=== PATIENT | female | born 1955 | race Caucasian/White ===

== ENCOUNTER → 2016-11-06 | Outpatient (CLI) | payer BC ==
--- NOTE | 2016-11-06 12:59 | BD ---
EXAMINATION TYPE: MG DEXA axial skeleton. DATE OF EXAM: 11/06/2016 10:57 AM COMPARISON: NONE CLINICAL HISTORY: M85.80 OSTEOPENIA Height: 65 Weight: 175 FRAX RISK QUESTIONS: Alcohol (3 or more units per day): NO Family History (Parent hip fracture): YES, BUT NO FX Glucocorticoids (More than 3mos): NO (Ex: prednisone, prednisolone, methylprednisolone, dexamethasone, and hydrocortisone). History of Fracture in Adulthood: NO Secondary Osteoporosis: NO 1. Type 1 Diabetes: NO 2. Hyperthyroidism: NO 3. Menopause before 45: NO 4. Malnutrition: NO 5. Chronic liver disease: NO Rheumatoid Arthritis: NO Current Tobacco Use: NONE NOW RISK FACTORS HISTORY OF: History of Wrist Fracture: YES LT WRIST When: CHILDHOOD Family History of Osteoporosis: YES, HER MOTHER, NO BROKEN HIP Smoke tobacco: QUIT AT AGE 52 Drink Alcohol: RARE Active: SEMI Diet low in dairy products/other sources of calcium: NO Postmenopausal woman: 52 Adrenal Insufficiency: NO MEDICATIONS: Additional Medications: VIT D, LEXAPRO, Additional History: NONE TO NOTE EXAM MEASUREMENTS: Bone mineral densitometry was performed using the [employer] System. Bone mineral density as measured about the Lumbar spine is: ----- L1-L4(G/cm2): 1.322 T Score Values are as follows: ----- L1: 0.0 ----- L2: 0.2 ----- L3: 1.6 ----- L4: 2.4 ----- L1-L4: 1.2 Bone mineral density THIS IS THE FIRST BONE DENSITY FOR HER AT [facility] Bone mineral density about the R hip (g/cm2): 1.160 Bone mineral density about the L hip (g/cm2): 1.091 T Score values are as follows: -----R Neck: 0.0 -----L Neck: 0.9 -----R Intertrochanter: -0.1 -----L Intertrochanter: -0.6 Bone mineral density FIRST BONE DENSITY TEST FOR HER AT [facility] FRAX %'S: 5.9% FOR A MAJOR OSTEOPOROTIC FX AND 0.1% FOR A HIP FX....PROBABILITY OF FX IN 10 YRS TIME IMPRESSION: Normal (Values between +1 and -1 indicate normal bone mass FOR BOTH SCANS, BOTH HIPS AND LUMBAR SP INE) NOTE: T-SCORE=SD OF THE YOUNG ADULT MEAN.
--- NOTE | 2016-11-15 09:48 | MM ---
Reason for exam: screening (asymptomatic). Last mammogram was performed 1 year and 3 months ago. History: Patient is postmenopausal. Family history of breast cancer in paternal aunt. Physical Findings: A clinical breast exam by your physician is recommended on an annual basis and results should be correlated with mammographic findings. MG 3D Screening Mammo W/Cad Bilateral CC and MLO view(s) were taken. Prior study comparison: July 22, 2015, mammogram, performed at [place]. June 01, 2014, mammogram, performed at [place]. The breast tissue is heterogeneously dense. This may lower the sensitivity of mammography. Benign calcifications. There is no discrete abnormality. No significant changes when compared with prior studies. ASSESSMENT: Benign, BI-RAD 2 RECOMMENDATION: Routine screening mammogram of both breasts in 1 year.
== END | disposition home or self-care (01) ==
LOC: RADMAMWWP 10:07
PROVIDERS: ATTEND Family Medicine
DX: Z12.31 Encounter for screening mammogram for malignant neoplasm of breast (principal); M85.80 Other specified disorders of bone density and structure, unspecified site
CPT/HCPCS: 77080; 77063; G0202

== ENCOUNTER 2018-09-09 16:51 | Emergency (ER) | payer BC ==
[2018-09-09 17:14] VITALS: BP 105/64; PULSE 60; RESP 20; TEMP 98.2
--- NOTE | 2018-09-09 18:22 | XR ---
EXAMINATION TYPE: XR shoulder complete LT DATE OF EXAM: 09/09/2018 COMPARISON: NONE HISTORY: 63 year-old female left shoulder pain TECHNIQUE: 3 views FINDINGS: Mild degenerative joint space narrowing and capsular distention at the AC joint. Subacromial space is preserved. No acute fracture, subluxation, or dislocation. IMPRESSION: Mild AC joint OA. No acute osseous abnormality seen.
[2018-09-09] MEDS ORDERED: KETOROLAC 60 MG/2 ML VIAL IM STA (19:02)
--- NOTE | 2018-09-09 19:29 | ED ---
General Adult HPI - General Chief complaint: Extremity Problem,Nontraumatic Stated complaint: Left shoulder pain Source: patient, RN notes reviewed, old records reviewed Mode of arrival: ambulatory Limitations: no limitations - History of Present Illness Initial comments: 63-year-old female patient with no pertinent past medical history presents to ED after sustaining a left shoulder injury. Patient states that she was standing in her kitchen when she reached overhead cabinet and she felt pain in her left acromioclavicular joint. She states that this pain has persisted throughout the day and the pain is worsened by internal/external rotation movements of her arm overhead movements of her arm and painful to palpate. Patient denies any other complaints. Patient denies chest pain, shortness breath, abdominal pain, nausea and diarrhea, fever or chills. Systemic: Pt denies fatigue, myalgia, fever/chills, rash. Pt denies weakness, night sweats, weight loss. Neuro: Pt denies headache, visual disturbances, syncope or pre-syncope. HEENT: Pt denies ocular discharge or irritation, otalgia, rhinorrhea, pharyngitis or notable lymphadenopathy. Cardiopulmonary: Pt denies chest pain, SOB, heart palpitations, dyspnea on exertion. Abdominal/GI: Pt denies abdominal pain, n/v/d. : Pt denies dysuria, burning w/ urination, frequency/urgency. Denies new onset urinary or bowel incontinence. MSK: Pt denies loss of strength in extremities. Neuro: Pt denies new onset weakness, paresthesias. - Related Data Previous Rx's Medication Instructions Recorded Ibuprofen [Motrin] 600 mg PO Q6HR PRN #40 day 09/09/18 Allergies Allergy/AdvReac Type Severity Reaction Status Date / Time No Known Allergies Allergy Verified 09/09/18 17:14 Review of Systems ROS Statement: Those systems with pertinent positive or pertinent negative responses have been documented in the HPI. ROS Other: All systems not noted in ROS Statement are negative. Past Medical History Past Medical History: No Reported History History of Any Multi-Drug Resistant Organisms: None Reported Past Surgical History: Appendectomy, Section Past Psychological History: Depression Smoking Status: Former smoker Past Alcohol Use History: None Reported Past Drug Use History: None Reported General Exam - General Exam Comments Initial Comments: Constitutional: NAD, AOX3, Pt has pleasant affect. HEENT: NC/AT, trachea midline, neck supple, no lymphadenopathy. Posterior pharynx non erythematous, without exudates. External ears appear normal, without discharge. Mucous membranes moist. Eyes PERRLA, EOM intact. There is no scleral icterus. No pallor noted. Cardiopulmonary: RRR, no murmurs, rubs or gallops, no JVD noted. Lungs CTAB in anterior and posterior saavedra. No peripheral edema. Abdominal exam: Abdomen soft and non-distended. Abdomen non-tender to palpation in all 4 quadrants. Bowel sounds active in LLQ. No hepatosplenomegaly. No ecchymosis Neuro: CN II-XII grossly intact. No nuchal rigidity. MSK: Left AC joint mildly tender to palpation. Painful arc positive left sided. Empty can test positive left sided. Pain with internal and external rotation. 5 out of 5 biceps and triceps strength. No posterior calf tenderness bilaterally, homans sign negative bilaterally. Posterior tibialis and radial pulse +2 bilaterally. Sensation intact in upper and lower extremities. Full active ROM in upper and lower extremities, 5/5 strength. Limitations: no limitations Course Vital Signs 09/09/18 17:11 Temperature 98.2 F Pulse Rate 60 Respiratory 20 Rate Blood Pressure 105/64 O2 Sat by Pulse 97 Oximetry Medical Decision Making - Medical Decision Making 63-year-old female patient with no pertinent past medical history presents to ED after sustaining a left shoulder injury. Patient states that she was standing in her kitchen when she reached overhead cabinet and she felt pain in her left acromioclavicular joint. She states that this pain has persisted throughout the day and the pain is worsened by internal/external rotation movements of her arm overhead movements of her arm and painful to palpate. Patient denies any other complaints. Physical exam displayed Left AC joint mildly tender to palpation. Painful arc positive left sided. Empty can test positive left sided. Pain with internal and external rotation. 5 out of 5 biceps and triceps strength. Plain film of left shoulder joint displayed mild before meals joint posterior arthritis. No acute osseous abnormality seen. Physical exam is suspicious for left rotator cuff injury. Patient given Toradol in ED. discharged with ibuprofen. Pt to f/u with PCP in 1-2 days. Pt given orthopetic referral. Pt to return to ED if new s/sx develop or if sx worsen in anyway. Case discussed with Dr. Burrows Disposition Clinical Impression: Rotator cuff injury Disposition: HOME SELF-CARE Condition: Good Instructions: Rotator Cuff Injury (ED) Additional Instructions: Patient to adhere to previously discussed treatment plan and will take medication(s) as directed. Patient to follow up with PCP in 1-2 days. Patient to return to ED if symptoms do not improve. Prescriptions: Ibuprofen [Motrin] 600 mg PO Q6HR PRN #40 day PRN Reason: Pain Is patient prescribed a controlled substance at d/c from ED?: No Referrals: Ryan Bang DO [Primary Care Provider] - 1-2 days Cuong Suárez MD [STAFF PHYSICIAN] - 1-2 days Time of Disposition: 19:29
== END 2018-09-09 19:56 | disposition home or self-care (01) ==
LOC: EC 16:51
DX: S46.002A Unspecified injury of muscle(s) and tendon(s) of the rotator cuff of left shoulder, initial encounter (principal); Z87.891 Personal history of nicotine dependence; X50.9XXA Other and unspecified overexertion or strenuous movements or postures, initial encounter; Y92.000 Kitchen of unspecified non-institutional (private) residence as the place of occurrence of the external cause
CPT/HCPCS: 73030; 99284; 96372; J1885

== ENCOUNTER → 2018-09-17 | Outpatient (CLI) | payer BC ==
--- NOTE | 2018-09-21 10:31 | MM ---
Reason for exam: screening (asymptomatic). Last mammogram was performed 1 year and 10 months ago. History: Patient is postmenopausal. Family history of breast cancer in aunt. MG 3D Screening Mammo W/Cad Bilateral CC and MLO view(s) were taken. Prior study comparison: November 06, 2016, bilateral MG 3d screening mammo w/cad. July 22, 2015, mammogram, performed at [place]. There are scattered fibroglandular densities. No suspicious abnormality. No significant changes when compared with prior studies. ASSESSMENT: Negative, BI-RAD 1 RECOMMENDATION: Routine screening mammogram of both breasts in 1 year.
== END | disposition home or self-care (01) ==
LOC: RADMAMWWP 15:09
PROVIDERS: ATTEND Family Medicine
DX: Z12.31 Encounter for screening mammogram for malignant neoplasm of breast (principal)
CPT/HCPCS: 77063; 77067

== ENCOUNTER → 2020-07-09 | Outpatient (CLI) | payer BC | END | disposition home or self-care (01) | LOC: LABWHC1 12:28 | PROVIDERS: ATTEND Physician Assistant Medical | DX: J02.9 Acute pharyngitis, unspecified (principal); R05 Cough; Z20.828 Contact with and (suspected) exposure to other viral communicable diseases | CPT/HCPCS: U0003; C9803 ==

== ENCOUNTER → 2020-10-12 | Outpatient (CLI) | payer BC ==
--- NOTE | 2020-10-12 14:05 | US ---
EXAMINATION TYPE: US thyroid st tissue head/neck DATE OF EXAM: 10/12/2020 COMPARISON: NONE CLINICAL HISTORY: E07.9 Disorder of the thyroid. thyroid nodules GLAND SIZE: Right Lobe: 4.4 x 1.2 x 1.6 cm Overall Parenchyma: homogenous Left Lobe: 3.8 x 1.1 x 1.2 cm Overall Parenchyma: homogeneous Isthmus Thickness: 0.3 cm NODULES RIGHT: # of nodules measured on right: 2 1. 0.9 X 0.6 x 0.7 cm solid, hypoechoic nodule, which is wider than tall, with smooth margins, with out echogenic foci. Prior size: no prior 2. 0.4 X 0.4 x 0.3 cm solid, hypoechoic nodule, which is wider than tall, with calcified margins Prior size: no prior LEFT: # of nodules measured on left: 1 1. 0.5 X 0.4 x 0.5 cm solid, hypoechoic nodule, which is wider than tall, with smooth margins, with echogenic foci. Prior size: no prior ISTHMUS: # of nodules measured in the isthmus: 0 Bilateral neck scanned, no evidence of lymphadenopathy. IMPRESSION: Nonspecific thyroid nodularity.
== END | disposition home or self-care (01) ==
LOC: RADUSWWP 12:12
PROVIDERS: ATTEND Family Medicine
DX: E07.9 Disorder of thyroid, unspecified (principal)
CPT/HCPCS: 76536

== ENCOUNTER → 2020-10-12 | Outpatient (CLI) | payer BC ==
[2020-10-12 13:36] VITALS: BP 136/67; PULSE 79; RESP 18; TEMP 98.1
--- NOTE | 2020-10-12 14:18 | P.HPOB ---
History of Present Illness H&P Date: 10/12/20 Chief Complaint: The patient is here for her routine gynecologic exam and ma mmogram. This is a 65-year-old with an LMP of 2006. The patient is here to establish with this office. It has been about 5 years since her last pelvic exam. The patient is without complaints and denies any postmenopausal bleeding. Review of Systems The patient's weight has been stable over the last year. She denies respiratory, cardiac, or G.I. problems. 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 Heartburn. PAST [employer] HISTORY: She has no history of STDs. History of Any Multi-Drug Resistant Organisms: None Reported Past Surgical History: Appendectomy, Section, Tubal Ligation Additional Past Surgical History / Comment(s): Colonoscopy 2016(next after 10yr). Past Psychological History: Depression Smoking Status: Former smoker Past Alcohol Use History: Rare (3 per year) Additional Past Alcohol Use History / Comment(s): Quit smoking in 2005. Past Drug Use History: None Reported Additional History: She has been twice. She is not seeing anybody at this time. 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 Father Family Medical History: Diabetes Mellitus, Hypertension Additional Family Medical History / Comment(s): Paternal aunt had breast cancer. Brother(s) Family Medical History: Myocardial Infarction ([place]) Additional Family Medical History / Comment(s): in his 40s of an [place]. Medications and Allergies Home Medications Medication Instructions Recorded Confirmed Type Ibuprofen [Motrin] 600 mg PO Q6HR PRN #40 day 09/09/18 10/12/20 Rx Aspirin 81 mg PO DAILY 10/12/20 10/12/20 History Calcium Carbonate/Vitamin D3 1 each PO DAILY 10/12/20 10/12/20 History [Calcium 500-Vit D3 5 Mcg (200 Iu)] Cholecalciferol (Vitamin D3) 125 mcg PO DAILY 10/12/20 10/12/20 History [Vitamin D3 (5000 Iu)] Escitalopram [Lexapro] 10 mg PO DAILY 10/12/20 10/12/20 History Magnesium 250 mg PO DAILY 10/12/20 10/12/20 History Multivitamin [Multivitamins Adult 1 each PO DAILY 10/12/20 10/12/20 History Gummies] Omeprazole 20 mg PO DAILY 10/12/20 10/12/20 History Rosuvastatin [Crestor] 20 mg PO DAILY 10/12/20 10/12/20 History Ubidecarenone [Co Q-10] 100 mg PO DAILY 10/12/20 10/12/20 History Allergies Allergy/AdvReac Type Severity Reaction Status Date / Time No Known Allergies Allergy Verified 09/09/18 17:14 Exam Vital Signs Temp Pulse Resp BP Pulse Ox 10/12/20 13:31 98.1 F 79 18 136/67 98 Intake and Output 10/11/20 10/12/20 10/12/20 22:59 06:59 14:59 Other: Weight 82.554 kg Height 5 feet 4-1/2 inches, weight 182 pounds, BMI 30.8. This is a well-developed well-nourished white female who is alert and oriented times 3 in no acute distress. HEENT: Within normal limits. NECK: Supple without mass or thyromegaly. CHEST AND LUNGS: Clear to auscultation. HEART: Regular rate and rhythm. BREASTS: Are without mass or discharge. AXILLARY EXAM: Negative for adenopathy. BACK: Negative for CVA tenderness. ABDOMEN: Soft, nontender, without palpable masses. PELVIC EXAM: Normal external genitalia with moderate atrophy. Cervix and vagina appear normal with mild to moderate atrophy. There is no unusual discharge. There is no evidence of prolapse. The uterus is midposition, nongravid size and nontender. There are no palpable adnexal masses or tenderness. RECTAL EXAM: Rectovaginal exam is negative for mass or tenderness and is negative for occult blood. EXTREMITIES: Nontender. Prior studies: Bone density test done on 11/06/2016 was normal. IMPRESSION: 1. 65-year-old menopausal female with normal gynecologic exam. PLAN: 1. Pap smear cotest was performed. 2. Self breast awareness was discussed with the patient. 3. Screening mammogram will be done today. 4. Osteoporosis prevention was discussed. I have stressed the importance of adequate calcium, vitamin D and regular exercise. Recommended amounts of calcium and vitamin D were also discussed. We will plan on repeating bone density testing in 1 year at her next well woman exam. 5. She was advised to return in one year for her annual well woman exam.
--- NOTE | 2020-10-15 13:12 | MM ---
Reason for exam: screening (asymptomatic). Last mammogram was performed 2 years and 1 month ago. History: Patient is postmenopausal. Family history of breast cancer in aunt. Took hormonal contraceptives for 5 years. Physical Findings: A clinical breast exam by your physician is recommended on an annual basis and results should be correlated with mammographic findings. MG 3D Screening Mammo W/Cad Bilateral CC and MLO view(s) were taken. Prior study comparison: September 17, 2018, bilateral MG 3d screening mammo w/cad. November 06, 2016, bilateral MG 3d screening mammo w/cad. No significant changes when compared with prior studies. ASSESSMENT: Benign, BI-RAD 2 RECOMMENDATION: Routine screening mammogram of both breasts in 1 year.
== END | disposition home or self-care (01) ==
LOC: WWCWWP 12:14
PROVIDERS: ATTEND Obstetrics & Gynecology
DX: Z12.31 Encounter for screening mammogram for malignant neoplasm of breast (principal)
CPT/HCPCS: 77063; 77067

== ENCOUNTER 2021-11-13 16:35 | Emergency (ER) | payer BC ==
[2021-11-13 16:40] VITALS: RESP 20; TEMP 98.6
[2021-11-13] MEDS ORDERED: diphenhydrAMINE 50 MG/ML 1 ML VIAL IVP STA (16:56)
[2021-11-13] MEDS ORDERED: ONDANSETRON 4 MG/2 ML VIAL IVP STA (16:56)
[2021-11-13] MEDS ORDERED: SODIUM CHLORIDE 0.9% 1,000 ML IV STA (16:56)
--- NOTE | 2021-11-13 17:06 | ED ---
General Adult HPI - General Chief complaint: Headache Stated complaint: headache, right eye pressure Time Seen by Provider: 11/13/21 16:45 Source: patient, RN notes reviewed Mode of arrival: ambulatory Limitations: no limitations - History of Present Illness Initial comments: 66-year-old female presents to the emergency department for evaluation of head ache. Patient reports she woke up this morning with a sensation of pressure behind her right eye that has gradually worsened right sided headache pain. Patient states her symptoms are accompanied by nausea and sensitivity to light. SHe does have a history of migraine headaches and took Topamax with no improvement. States this headache is worse than her normal migraine. Patient has not sees a neurologist for migraines in the past as they have been minimal. States she also has a history of vertigo though not experienced any dizziness with this episode. Patient denies fever, chills, blurry vision, change in vision, loss of vision, neck pain, chest pain, shortness of breath, difficulty breathing, abdominal pain, vomiting, dysuria, or hematuria. - Related Data Home Medications Medication Instructions Recorded Confirmed Aspirin 81 mg PO DAILY 10/12/20 10/12/20 Calcium Carbonate/Vitamin D3 1 each PO DAILY 10/12/20 10/12/20 [Calcium 500-Vit D3 5 Mcg (200 Iu)] Cholecalciferol (Vitamin D3) 125 mcg PO DAILY 10/12/20 10/12/20 [Vitamin D3 (5000 Iu)] Escitalopram [Lexapro] 10 mg PO DAILY 10/12/20 10/12/20 Magnesium 250 mg PO DAILY 10/12/20 10/12/20 Multivitamin [Multivitamins Adult 1 each PO DAILY 10/12/20 10/12/20 Gummies] Omeprazole 20 mg PO DAILY 10/12/20 10/12/20 Rosuvastatin [Crestor] 20 mg PO DAILY 10/12/20 10/12/20 Ubidecarenone [Co Q-10] 100 mg PO DAILY 10/12/20 10/12/20 Previous Rx's Medication Instructions Recorded Ibuprofen [Motrin] 600 mg PO Q6HR PRN #40 day 09/09/18 Allergies Allergy/AdvReac Type Severity Reaction Status Date / Time No Known Allergies Allergy Verified 11/13/21 16:40 Review of Systems ROS Statement: Those systems with pertinent positive or pertinent negative responses have been documented in the HPI. ROS Other: All systems not noted in ROS Statement are negative. Past Medical History Past Medical History: CVA/TIA, Hyperlipidemia Additional Past Medical History / Comment(s): CVA in 2004 with no residual effects. 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 History of Any Multi-Drug Resistant Organisms: None Reported Past Surgical History: Appendectomy, Section, Tubal Ligation Additional Past Surgical History / Comment(s): Colonoscopy 2017(next after 10yr). Past Psychological History: Depression Smoking Status: Former smoker Past Alcohol Use History: Rare Past Drug Use History: None Reported - Past Family History Mother Family Medical History: Diabetes Mellitus, Hypertension Additional Family Medical History / Comment(s): Osteoporosis. Father Family Medical History: Diabetes Mellitus, Hypertension Additional Family Medical History / Comment(s): Paternal aunt had breast cancer. Brother(s) Family Medical History: Myocardial Infarction ([place]) Additional Family Medical History / Comment(s): in his 40s of an [place]. General Exam Limitations: no limitations General appearance: alert, other (Well-developed, well nourished female in mild distress. Initial temperature 98.6, pulse 61, respirations 20, blood pressure 150/60, pulse ox 99% on room air.) Head exam: Present: atraumatic, normocephalic, normal inspection, other (no tenderness upon palpation of temporal regions bilaterally) Eye exam: Present: normal appearance, PERRL, EOMI. Absent: scleral icterus, conjunctival injection, periorbital swelling, periorbital tenderness Pupils: Present: normal accommodation ENT exam: Present: normal exam, normal oropharynx, mucous membranes moist, TM's normal bilaterally Neck exam: Present: normal inspection, full ROM. Absent: tenderness, meningismus, lymphadenopathy Respiratory exam: Present: normal lung sounds bilaterally. Absent: respiratory distress, wheezes, rales, rhonchi, stridor, chest wall tenderness Cardiovascular Exam: Present: regular rate, normal rhythm, normal heart sounds. Absent: systolic murmur, diastolic murmur, rubs, gallop, clicks GI/Abdominal exam: Present: soft, normal bowel sounds. Absent: distended, tenderness, guarding, rebound, rigid Neurological exam: Present: alert, oriented X3 Expanded Patient oriented to: Present: person, place, time Speech: Present: fluid speech Cranial nerves: EOM's Intact: Normal, Tongue Deviation: Normal, Nystagmus: Normal Cerebellar function: Finger to Nose: Normal Motor strength exam: RUE: 5, LUE: 5, RLE: 5, LLE: 5 Eye Response: (4) open spontaneously Motor Response: (6) obeys commands Verbal Response: (5) oriented [place] Total: 15 Psychiatric exam: Present: normal affect, normal mood Skin exam: Present: warm, dry, intact, normal color. Absent: rash Course Vital Signs 11/13/21 11/13/21 16:38 19:07 Temperature 98.6 F Pulse Rate 61 55 L Respiratory 20 20 Rate Blood Pressure 150/68 126/62 O2 Sat by Pulse 99 96 Oximetry Medical Decision Making - Medical Decision Making 66-year-old female with a past medical history of migraines and vertigo presents to the emergency department for evaluation of headache that she describes as a pressure sensation behind her right eye extending to a throbbing sensation on the right side of her head. Upon exam, patient is well-appearing, nontoxic, and in no acute distress. She is very sensitive to light and reports feeling nauseous. She is neurologically intact with no focal deficit. Patient did take Topamax prior to arrival which typically helps with her headache discomfort. However because this headache is more severe than previous headaches and did not respond to medication, along with her age, CT of the brain was ordered along with lab work. CT was negative. Laboratory studies were unremarkable. Patient was given migraine cocktail and fluids with significant improvement. She is able to tolerate oral intake prior to departure. Red flag symptoms were discussed at length along with return parameters. Patient is instructed to follow up with her PCP this week. Questions answered, she verbalizes understanding and agrees with this plan. This patient's care was discussed with my attending Dr. Dorsey. - Lab Data Result diagrams: 11/13/21 17:02 11/13/21 17:02 Lab Results 11/13/21 11/13/21 Range/Units 17:02 17:02 WBC 7.2 (3.8-10.6) k/uL RBC 4.23 (3.80-5.40) m/uL Hgb 13.3 (11.4-16.0) gm/dL Hct 38.9 (34.0-46.0) % MCV 91.9 (80.0-100.0) fL MCH 31.4 (25.0-35.0) pg MCHC 34.2 (31.0-37.0) g/dL RDW 13.4 (11.5-15.5) % Plt Count 268 (150-450) k/uL MPV 7.4 Neutrophils % 63 % Lymphocytes % 26 % Monocytes % 6 % Eosinophils % 2 % Basophils % 1 % Neutrophils # 4.6 (1.3-7.7) k/uL Lymphocytes # 1.9 (1.0-4.8) k/uL Monocytes # 0.4 (0-1.0) k/uL Eosinophils # 0.2 (0-0.7) k/uL Basophils # 0.1 (0-0.2) k/uL Sodium 139 (137-145) mmol/L Potassium 4.0 (3.5-5.1) mmol/L Chloride 104 (98-107) mmol/L Carbon Dioxide 29 (22-30) mmol/L Anion Gap 6 mmol/L BUN 24 H (7-17) mg/dL Creatinine 0.78 (0.52-1.04) mg/dL Est GFR (CKD-EPI)AfAm >90 (>60 ml/min/1.73 sqM) Est GFR (CKD-EPI)NonAf 81 (>60 ml/min/1.73 sqM) Glucose 102 H (74-99) mg/dL Calcium 8.9 (8.4-10.2) mg/dL Total Bilirubin 0.6 (0.2-1.3) mg/dL AST 26 (14-36) U/L ALT 23 (4-34) U/L Alkaline Phosphatase 59 (38-126) U/L Total Protein 7.2 (6.3-8.2) g/dL Albumin 4.4 (3.5-5.0) g/dL - Radiology Data Radiology results: report reviewed, image reviewed CT of the brain without contrast was obtained. Report was reviewed in its entirety. Impression per Dr. Mulligan as negative computed tomography scan of the brain. Disposition Clinical Impression: Migraine headache Disposition: HOME SELF-CARE Condition: Stable Instructions (If sedation given, give patient instructions): Migraine Headache (ED) Additional Instructions: Continue taking your regular home medications as prescribed. Call your PCP to schedule follow-up appointment tomorrow morning. Return to the emergency department with any new, worsening, or concerning symptoms as we discussed. Is patient prescribed a controlled substance at d/c from ED?: No Referrals: Tommy Salvador DO [Primary Care Provider] - 1-2 days Time of Disposition: 20:00
[2021-11-13 17:13] LABS: Basophils # (A) 0.1 k/uL (0-0.2); Basophils % (A) 1 %; Eosinophils # (A) 0.2 k/uL (0-0.7); Eosinophils % (A) 2 %; HCT 38.9 % (34.0-46.0); HGB 13.3 gm/dL (11.4-16.0); Lymphocytes # (A) 1.9 k/uL (1.0-4.8); Lymphocytes % (A) 26 %; MCH 31.4 pg (25.0-35.0); MCHC 34.2 g/dL (31.0-37.0); MCV 91.9 fL (80.0-100.0); Mean Platelet Volume 7.4; Monocytes # (A) 0.4 k/uL (0-1.0); Monocytes % (A) 6 %; Neutrophils # (A) 4.6 k/uL (1.3-7.7); Neutrophils % (A) 63 %; Platelet Count 268 k/uL (150-450); RBC 4.23 m/uL (3.80-5.40); RDW 13.4 % (11.5-15.5); WBC 7.2 k/uL (3.8-10.6)
[2021-11-13 17:24] LABS: ALT 23 U/L (4-34); AST 26 U/L (14-36); African American GFR (CKD) >90 (>60 ml/min/1.73 sqM); Albumin 4.4 g/dL (3.5-5.0); Alkaline Phosphatase 59 U/L (38-126); Anion Gap 6 mmol/L; Blood Urea Nitrogen 24 mg/dL (7-17); Calcium 8.9 mg/dL (8.4-10.2); Carbon Dioxide 29 mmol/L (22-30); Chloride 104 mmol/L (98-107); Glucose 102 mg/dL (74-99); Non-African American GFR(CKD) 81 (>60 ml/min/1.73 sqM); Sodium 139 mmol/L (137-145); Total Bilirubin 0.6 mg/dL (0.2-1.3); Total Protein 7.2 g/dL (6.3-8.2)
--- NOTE | 2021-11-13 17:38 | CT ---
EXAMINATION TYPE: CT brain wo con DATE OF EXAM: 11/13/2021 COMPARISON: None HISTORY: Headache. CT DLP: 1099.4 mGycm Automated exposure control for dose reduction was used. Ventricles and sulci appear normal. There is no mass effect or midline shift. There is no sign of int racranial hemorrhage. Calvarium is intact. There is normal aeration of the mastoid sinuses. IMPRESSION: Negative CT scan of the brain.
[2021-11-13] MEDS ORDERED: KETOROLAC 15 MG/ML 1 ML VIAL IVP STA (18:54)
[2021-11-13 19:09] VITALS: BP 126/62; PULSE 55
== END 2021-11-13 20:09 | disposition home or self-care (01) ==
LOC: EC 16:35
DX: G43.909 Migraine, unspecified, not intractable, without status migrainosus (principal); I25.2 Old myocardial infarction; Z87.891 Personal history of nicotine dependence
CPT/HCPCS: 36415; 80053; 85025; 70450; 99284; 96374; 96375; 96361; J1200; J2405; J1885

== ENCOUNTER → 2022-06-28 | Outpatient (CLI) | payer BC ==
--- NOTE | 2022-06-28 14:30 | US ---
EXAMINATION TYPE: US thyroid st tissue head/neck DATE OF EXAM: 06/28/2022 COMPARISON: Thyroid ultrasound 12/13/2021 CLINICAL HISTORY: E07.9 Disorder of thyroid, E04.2 goiter. Thyroid nodules GLAND SIZE: Right Lobe: 4.9 x 1.3 x 1.6 cm Overall Parenchyma: homogenous Left Lobe: 3.8 x 1.2 x 1.2 cm Overall Parenchyma: homogeneous Isthmus Thickness: 0.3 cm NODULES RIGHT: # of nodules measured on right: 1 1. 1.0 X 0.6 x 0.8 cm, mid, solid or almost completely solid, hypoechoic nodule, which is wider marsha n tall, with smooth margins, without echogenic foci. TR-4. Prior size: 0.9 x 0.6 x 0.8 cm LEFT: # of nodules measured on left: 1 1. 0.6 x 0.4 x 0.5cm, medial mid, solid or almost completely solid, hypoechoic nodule, which is wider than tall, with smooth margins, without echogenic foci.TR-4. Prior size: 0.6 x 0.4 x 0.4cm ISTHMUS: # of nodules measured in the isthmus: 0 Bilateral neck scanned, no evidence of lymphadenopathy. Multiple small bilateral thyroid nodules with largest described above. IMPRESSION: Stable bilateral thyroid nodules from prior examination. Follow-up ultrasound in one year is recommen ded. 2017 ACR TI-RADS LEVEL: TR-RADS 4 - Moderately Suspicious: Follow if > 1 cm, FNA if > 1.5 cm *Highest TI-RADS level nodule reported
== END | disposition home or self-care (01) ==
LOC: RADUSWWP 13:26
PROVIDERS: ATTEND Family Medicine
DX: E07.9 Disorder of thyroid, unspecified (principal); E04.2 Nontoxic multinodular goiter
CPT/HCPCS: 76536

== ENCOUNTER → 2022-09-19 | Outpatient (CLI) | payer BC ==
--- NOTE | 2022-09-19 15:12 | CT ---
EXAMINATION TYPE: CT sinus wo con CT DLP: 813.8 mGycm, Automated exposure control for dose reduction was used. DATE OF EXAM: 09/19/2022 2:53 PM COMPARISON: CT brain 11/13/2021. CLINICAL INDICATION:Female, 67 years old with history of J32.9 CHRONIC SINUSITIS; CONTRAST: None. TECHNIQUE: Multiple thin axial images were obtained through the paranasal sinuses without the use of IV contrast. Additional coronal and sagittal reformatted images were submitted for evaluation. FINDINGS: Dental amalgam. Streak artifact which limits evaluation. Frontal sinuses: Normally developed and aerated. Frontal Recess: Clear Maxillary Sinuses: Normally developed. Mild mucosal thickening of the inferior right rectus sinus. He terogenous intrasinus calcification within the left inferior maxillary sinus with wall thickening/het erotopic ossification. (series 3, image 35). Maxillary Infundibula([facility]): Clear, Masood cell identified on the left without significant narrowing o f the infundibula. Ethmoid sinuses: Normally developed and aerated. Ethmoidal notch: Protected and abutting the lateral lamina. Sphenoid sinuses: Normally developed and aerated. There is sellar sphenoid sinus pneumatization witho ut evidence of dehiscence. No dehiscence of carotid canal. No evidence of optic nerve dehiscence wit hin the sphenoid sinus. No evidence of Onodi cells. Sphenoethmoidal recesses: Clear. Nasal septum: Within normal limits.. Nasal Turbinates: Within normal limits. Mastoid air cells & middle ears: The air cells are clear. The middle ears are grossly unremarkable. Modified Soft tissues & Brain: Partially seen without gross abnormality. Globes are intact. Other: Cribriform plate demonstrates symmetric Keros classification type 2 cribriform plate. No evidence of bony dehiscence of skull base. Lamina papyracea is intact without evidence of remote orbital fracture or orbital prolapse into the e thmoid sinus. IMPRESSION: 1. Mild mucosal thickening of the bilateral maxillary sinuses with heterogenous intrasinus calcificat ion within the inferior left maxillary sinus with adjacent wall thickening/heterotopic ossification c onsistent with chronic sinusitis. Superimposed fungal infection is not excluded. 2. The ostiomeatal units, frontonasal and sphenoethmoidal recesses are clear. 3. Left Masood cell without significant narrowing.
== END | disposition home or self-care (01) ==
LOC: RADCTMAIN 14:33
PROVIDERS: ATTEND Otolaryngology
DX: J32.9 Chronic sinusitis, unspecified (principal); J34.89 Other specified disorders of nose and nasal sinuses
CPT/HCPCS: 70486

== ENCOUNTER → 2022-12-19 | Outpatient (CLI) | payer BC ==
[2022-12-19 10:44] VITALS: BP 120/74; PULSE 68; RESP 17; TEMP 97.9
--- NOTE | 2022-12-19 11:15 | P.HPOB ---
History of Present Illness H&P Date: 12/19/22 Chief Complaint: The patient is here for her routine gynecologic exam and ma mmogram. This is a 67-year-old with an LMP of 2006. The patient is without gynecologic complaints and denies any postmenopausal bleeding. She recently has gotten a membership at and exercise facility and is going to use this for weight control. Review of Systems The patient's weight has been stable over the last year. She denies respiratory, cardiac, or G.I. problems. 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 Heartburn. 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 History of Any Multi-Drug Resistant Organisms: None Reported Past Surgical History: Appendectomy, Section, Tubal Ligation Additional Past Surgical History / Comment(s): Colonoscopy 2016(next after 10yr). SINUS LIFT AND BONE GRAFT JULY AND AUGUST 2022 Past Psychological History: Depression Smoking Status: Former smoker Past Alcohol Use History: Rare (3 per year) Additional Past Alcohol Use History / Comment(s): Quit smoking in 2005. Past Drug Use History: None Reported Additional History: She has been twice. She is not sexually active. 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 She plans on retiring in May 2024. - Past Family History Mother Family Medical History: Diabetes Mellitus, Hypertension Additional Family Medical History / Comment(s): Osteoporosis. Father Family Medical History: Diabetes Mellitus, Hypertension Additional Family Medical History / Comment(s): Paternal aunt had breast cancer. Brother(s) Family Medical History: Myocardial Infarction ([place]) Additional Family Medical History / Comment(s): in his 40s of an [place]. Medications and Allergies Home Medications Medication Instructions Recorded Confirmed Type Ibuprofen [Motrin] 600 mg PO Q6HR PRN #40 day 09/09/18 12/19/22 Rx Aspirin 81 mg PO DAILY 10/12/20 12/19/22 History Calcium Carbonate/Vitamin D3 1 each PO DAILY 10/12/20 12/19/22 History [Calcium 500-Vit D3 5 Mcg (200 Iu)] Cholecalciferol (Vitamin D3) 125 mcg PO DAILY 10/12/20 12/19/22 History [Vitamin D3 (5000 Iu)] Escitalopram [Lexapro] 10 mg PO DAILY 10/12/20 12/19/22 History Magnesium 250 mg PO DAILY 10/12/20 12/19/22 History Multivitamin [Multivitamins Adult 1 each PO DAILY 10/12/20 12/19/22 History Gummies] Rosuvastatin [Crestor] 20 mg PO DAILY 10/12/20 12/19/22 History Ubidecarenone [Co Q-10] 100 mg PO DAILY 10/12/20 12/19/22 History Montelukast Sodium [Singulair] 4 mg PO DAILY 12/19/22 12/19/22 History cycloSPORINE 0.05% OPHTH SOLN 1 drop BOTH EYES BID 12/19/22 12/19/22 History [Restasis] Allergies Allergy/AdvReac Type Severity Reaction Status Date / Time No Known Allergies Allergy Verified 12/19/22 10:37 Exam Vital Signs Temp Pulse Resp BP Pulse Ox 12/19/22 10:41 97.9 F 68 17 120/74 97 Intake and Output 12/18/22 12/19/22 12/19/22 22:59 06:59 14:59 Other: Weight 87.09 kg Height 5 feet 5 inches, weight 192 pounds, BMI 32.0. This is a well-developed well-nourished white female who is alert and oriented times 3 in no acute distress. HEENT: Within normal limits. NECK: Supple without mass or thyromegaly. CHEST AND LUNGS: Clear to auscultation. HEART: Regular rate and rhythm. BREASTS: Are without mass or discharge. AXILLARY EXAM: Negative for adenopathy. BACK: Negative for CVA tenderness. ABDOMEN: Soft, nontender, without palpable masses. PELVIC EXAM: Normal external genitalia with mild to moderate atrophy. Cervix and vagina appear normal with mild to moderate atrophy. The cervix appears nulliparous. There is no unusual discharge. There is no evidence of prolapse. The uterus is midposition, nongravid size and nontender. There are no palpable adnexal masses or tenderness. RECTAL EXAM: Rectovaginal exam is negative for mass or tenderness and is negative for occult blood. EXTREMITIES: Nontender. IMPRESSION: 1. 67-year-old menopausal female with normal gynecologic exam. PLAN: 1. Pap smear was deferred since she had a normal Pap smear cotest on 10/12/2020. That was the first one we had on record at this office. We will plan on repeating this after about 4-5 years and if that one is negative, we will plan on discontinuing Pap smears. 2. Self breast awareness was discussed with the patient. We have also discussed symptoms associated with inflammatory breast cancer. 3. Screening mammogram will be done today. 4. Osteoporosis prevention was discussed. I have stressed the importance of adequate calcium, vitamin D and regular exercise. Recommended amounts of calcium and vitamin D were also discussed. She had a normal bone density test done in 2021. We will plan on repeating this in approximately 2027. 5. She was advised to return in one year for her annual well woman exam.
--- NOTE | 2022-12-20 08:55 | MM ---
Reason for Exam: Screening (asymptomatic). Last screening mammogram was performed 12 month(s) ago. Patient History: Menarche at age 18. First Full-Term at age 25. Postmenopausal. Patient has history of breast feeding. Patient used Hormonal Contraceptives for 5 years. Paternal aunt had breast cancer. Risk Values: Lucy 5 year model risk: 1.4%. NCI Lifetime model risk: 5.1%. Prior Study Comparison: 09/17/2018 Bilateral Screening Mammogram, [facility]. 10/12/2020 Bilateral Screening Mammogram, [facility]. 12/13/2021 Bilateral Screening Mammogram, [facility]. Tissue Density: There are scattered fibroglandular densities. Findings: Analyzed By CAD. There is no suspicious group of microcalcifications or new suspicious mass in either breast. Overall Assessment: Negative, BI-RAD 1 Management: Screening Mammogram of both breasts in 1 year. A clinical breast exam by your physician is recommended on an annual basis and results should be correlated with mammographic findings. [facility] will attempt to contact patient to return for supplemental views and ultrasound if indicated. Electronically signed and approved by: Diaz Blankenship DO
== END ==
LOC: WWCWWP 10:27
PROVIDERS: ATTEND Obstetrics & Gynecology
DX: Z12.31 Encounter for screening mammogram for malignant neoplasm of breast (principal); Z01.419 Encounter for gynecological examination (general) (routine) without abnormal findings; E78.5 Hyperlipidemia, unspecified; F32.A Depression, unspecified; Z79.1 Long term (current) use of non-steroidal anti-inflammatories (NSAID); Z79.82 Long term (current) use of aspirin; Z79.899 Other long term (current) drug therapy; Z80.3 Family history of malignant neoplasm of breast; Z82.49 Family history of ischemic heart disease and other diseases of the circulatory system; Z82.62 Family history of osteoporosis; Z83.3 Family history of diabetes mellitus; Z86.73 Personal history of transient ischemic attack (TIA), and cerebral infarction without residual deficits; Z87.891 Personal history of nicotine dependence; Z90.49 Acquired absence of other specified parts of digestive tract
CPT/HCPCS: 77063; 77067

== ENCOUNTER → 2023-07-03 | Outpatient (CLI) | payer BC ==
--- NOTE | 2023-07-04 22:36 | US ---
EXAMINATION TYPE: US thyroid st tissue head/neck DATE OF EXAM: 07/03/2023 COMPARISON: US 06/28/2022 CLINICAL INDICATION: Female, 67 years old with history of E07.9 DISORDER OF THYROID, UNSPECIFIED E04. 2 NONTO; Disorder of thyroid. Goiter. GLAND SIZE: Right Lobe: 4.6 x 1.6 x 1.4 cm Overall Parenchyma: homogenous Left Lobe: 3.5 x 1.3 x 1.0 cm Overall Parenchyma: homogeneous Isthmus Thickness: 0.24 cm NODULES RIGHT: # of nodules measured on right: 2 1. 1.2 X 0.8 x 0.6 cm, mid mid, solid or almost completely solid, hypoechoic nodule, which is wider than tall, with smooth margins, without echogenic foci. TR 4 Prior size: 1.0 x 0.6 x 0.8 cm 2. 0.5 X 0.5 x 0.4 cm, lower mid, mixed cystic and solid, hyperechoic nodule, which is wider than t all, with smooth margins, without echogenic foci. TR 3 Prior size: does not correlate with prior. Calcified-appearing area shows posterior shadowing. LEFT: # of nodules measured on left: 1 1. 0.7 X 0.6 x 0.5 cm, mid medial, solid or almost completely solid, hypoechoic nodule, which is wi allan than tall, with smooth margins, with echogenic foci. Prior size: 0.6 x 0.4 x 0.5 cm ISTHMUS: # of nodules measured in the isthmus: 0 Bilateral neck scanned, no evidence of lymphadenopathy. IMPRESSION: 1. Moderately suspicious nodules. Follow-up recommended in one year. 2017 ACR TI-RADS LEVEL: TR-RADS 4 - Moderately Suspicious: Follow if > 1 cm, FNA if > 1.5 cm *Highest TI-RADS level nodule reported
== END | disposition home or self-care (01) ==
LOC: RADUSWWP 15:28
PROVIDERS: ATTEND Family Medicine
DX: E04.2 Nontoxic multinodular goiter (principal); E07.9 Disorder of thyroid, unspecified
CPT/HCPCS: 76536

== ENCOUNTER 2023-08-01 12:40 | Day surgery (SDC) | payer BC ==
[2023-08-01] MEDS ORDERED: ALBUMIN HUMAN 25% 50 ML in EMPTY BAG 1 BAG IVPB SCH (13:30)
[2023-08-01] MEDS ORDERED: ALPRAZolam 0.25 MG TAB PO STA (13:41)
[2023-08-01 13:46] VITALS: RESP 16; TEMP 98.1
--- NOTE | 2023-08-01 15:03 | US ---
EXAMINATION TYPE: US FNA thyroid first lesion DATE OF EXAM: 08/01/2023 2:38 PM CLINICAL INDICATION:Female, 68 years old with history of E04.2, E07.9; , thyroid nodule. COMPARISON: 07/03/2023. ATTENDING: Dr. Diaz Blankenship PROCEDURE: Informed consent was obtained. The risks and benefits of the procedure were discussed with the patien t. The site was marked. Timeout procedure was performed Ultrasound imaging of the thyroid demonstrates hypoechoic nodule The patient was prepped, draped in the usual sterile fashion, and locally anesthetized with 1% lidoca ine. Five fine needle aspiration were then performed with a 25 gauge needle. Samples were sent to [facility] pathology department for further analysis. Patient tolerated the procedure without incident and wa s sent home in stable condition. IMPRESSION: Successful ultrasound guided fine needle aspiration.
[2023-08-01 15:14] VITALS: BP 146/63; PULSE 52
== END 2023-08-01 14:50 | disposition home or self-care (01) ==
LOC: RADPROMAIN 12:40
PROVIDERS: ATTEND Family Medicine
DX: E04.1 Nontoxic single thyroid nodule (principal)
CPT/HCPCS: 10005; 88173; 88305

== ENCOUNTER → 2024-01-15 | Outpatient (CLI) | payer BC ==
--- NOTE | 2024-01-15 12:43 | XR ---
EXAM TYPE: LUMBAR SPINE X RAY SERIES COMPARISON: NONE HISTORY: Pain TECHNIQUE: 3 views are submitted. FINDINGS: Alignment is anatomic. The pedicles are intact. The transverse processes are intact. There is face t arthropathy L4-5 and L5-S1. Mild degenerative disc disease L5-S1. Vascular calcifications. IMPRESSION: 1. Mild degenerative disc disease L5-S1. 2. Facet arthropathy L4-5 and L5-S1.
== END | disposition home or self-care (01) ==
LOC: RADXRMAIN 12:20
PROVIDERS: ATTEND Family Medicine
DX: M51.37 Other intervertebral disc degeneration, lumbosacral region (principal); M47.817 Spondylosis without myelopathy or radiculopathy, lumbosacral region; W10.8XXA Fall (on) (from) other stairs and steps, initial encounter
CPT/HCPCS: 72100

== ENCOUNTER → 2024-01-29 | Outpatient (CLI) | payer BC ==
--- NOTE | 2024-01-29 11:34 | P.HPOB ---
History of Present Illness H&P Date: 01/29/24 Chief Complaint: The patient is here for her routine gynecologic exam and ma mmogram. This is a 68-year-old with an LMP of 2006. The patient is without gynecologic complaints and denies any postmenopausal bleeding. Review of Systems The patient's weight has been stable over the last year. She denies respiratory, cardiac, or G.I. problems. 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 Heartburn. 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 History of Any Multi-Drug Resistant Organisms: None Reported Past Surgical History: Appendectomy, Section, Tubal Ligation Additional Past Surgical History / Comment(s): Colonoscopy 2016(next after 10yr). SINUS LIFT AND BONE GRAFT JULY AND AUGUST 2022 Past Psychological History: Depression Smoking Status: Former smoker Past Alcohol Use History: Rare (About 5 or 6 drinks per year.) Additional Past Alcohol Use History / Comment(s): Quit smoking in 2012. Past Drug Use History: None Reported Additional History: She has been twice. She is currently not sexually active. 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 - Past Family History Mother Family Medical History: Diabetes Mellitus, Hypertension Additional Family Medical History / Comment(s): Osteoporosis. Father Family Medical History: Diabetes Mellitus, Hypertension Additional Family Medical History / Comment(s): Paternal aunt had breast cancer. Brother(s) Family Medical History: Myocardial Infarction ([place]) Additional Family Medical History / Comment(s): in his 40s of an [place]. Medications and Allergies Home Medications Medication Instructions Recorded Confirmed Type Aspirin 81 mg PO DAILY 10/12/20 01/29/24 History Calcium Carbonate/Vitamin D3 1 each PO DAILY 10/12/20 01/29/24 History [Calcium 500-Vit D3 5 Mcg (200 Iu)] Cholecalciferol (Vitamin D3) 125 mcg PO DAILY 10/12/20 01/29/24 History [Vitamin D3 (5000 Iu)] Escitalopram [Lexapro] 10 mg PO DAILY 10/12/20 01/29/24 History Magnesium 250 mg PO DAILY 10/12/20 01/29/24 History Multivitamin [Multivitamins Adult 1 each PO DAILY 10/12/20 01/29/24 History Gummies] Rosuvastatin [Crestor] 20 mg PO DAILY 10/12/20 01/29/24 History Ubidecarenone [Co Q-10] 100 mg PO DAILY 10/12/20 01/29/24 History Montelukast Sodium [Singulair] 4 mg PO DAILY 12/19/22 01/29/24 History cycloSPORINE 0.05% OPHTH SOLN 1 drop BOTH EYES BID 12/19/22 01/29/24 History [Restasis] Allergies Allergy/AdvReac Type Severity Reaction Status Date / Time No Known Allergies Allergy Verified 01/29/24 10:54 Exam Vital Signs Temp Pulse Resp BP Pulse Ox 01/29/24 10:55 98.3 F 61 17 128/84 97 Intake and Output 01/28/24 01/29/24 01/29/24 22:59 06:59 14:59 Other: Weight 87.543 kg Height 5 feet 4 inches, weight 193 pounds, BMI 33.1. This is a well-developed well-nourished white female who is alert and oriented times 3 in no acute distress. HEENT: Within normal limits. NECK: Supple without mass or thyromegaly. CHEST AND LUNGS: Clear to auscultation. HEART: Regular rate and rhythm. BREASTS: Are without mass or discharge. AXILLARY EXAM: Negative for adenopathy. BACK: Negative for CVA tenderness. ABDOMEN: Soft, nontender, without palpable masses. PELVIC EXAM: Normal external genitalia with mild atrophy. Cervix and vagina appear normal with mild to moderate atrophy. There is no unusual discharge. There is no evidence of prolapse. The uterus is midposition, nongravid size and nontender. There are no palpable adnexal masses or tenderness. RECTAL EXAM: Rectovaginal exam is negative for mass or tenderness and is negative for occult blood. EXTREMITIES: Nontender. IMPRESSION: 1. 68-year-old menopausal female with normal gynecologic exam. PLAN: 1. Pap smear was deferred since she had a negative Pap smear cotest on 12/13/2021. 2. Self breast awareness was discussed with the patient. We have also discu ssed symptoms associated with inflammatory breast cancer. 3. Screening mammogram was done today. 4. Osteoporosis prevention was discussed. She had a normal bone density test on 12/13/2021 and this will be repeated in approximately 2026. 5. She was advised to return in one year for her annual well woman exam.
[2024-01-29 11:36] VITALS: BP 128/84; PULSE 61; RESP 17; TEMP 98.3
== END ==
LOC: WWCWWP 10:39
PROVIDERS: ATTEND Obstetrics & Gynecology
DX: Z12.31 Encounter for screening mammogram for malignant neoplasm of breast (principal); Z78.0 Asymptomatic menopausal state; Z80.3 Family history of malignant neoplasm of breast; Z87.891 Personal history of nicotine dependence
CPT/HCPCS: 77063; 77067

== ENCOUNTER → 2025-03-10 | Outpatient (CLI) | payer BC ==
--- NOTE | 2025-03-10 15:53 | US ---
EXAMINATION TYPE: US thyroid st tissue head/neck DATE OF EXAM: 03/10/2025 COMPARISON: Multiple thyroid ultrasounds with most recent US 07/03/2023, ultrasound FNA thyroid 08/01 CLINICAL INDICATION: Female, 69 years old with history of E07.9 DISORDER OF THYROID, UNSPECIFIED; Fol low up TECHNIQUE: Grayscale and color Doppler imaging of the thyroid gland. FINDINGS: GLAND SIZE: Right Lobe: 4.9 x 1.4 x 1.2 cm Overall Parenchyma: homogeneous Left Lobe: 4.5 x 1.1 x 1.4 cm Overall Parenchyma: homogeneous Isthmus Thickness: 0.2 cm NODULES RIGHT: # of nodules measured on right: 2 1. 0.9 X 0.5 x 0.7 cm, lower mid, solid or almost completely solid, hypoechoic nodule, which is wid er than tall, with smooth margins, without echogenic foci. TR 4. Prior size: 1.2 x 0.6 x 0.8 cm 2. 0.3 X 0.2 x 0.3 cm, lower medial, solid or almost completely solid, hypoechoic nodule, which is wider than tall, with smooth margins, without echogenic foci. TR 4. Prior size: 0.5 x 0.4 x 0.5 cm LEFT: # of nodules measured on left: 1 1. 0.6 X 0.4 x 0.6 cm, lower medial, solid or almost completely solid, hypoechoic nodule, which is wider than tall, with smooth margins, without echogenic foci. TR 4. Prior size: 0.7 x 0.5 x 0.6 cm ISTHMUS: # of nodules measured in the isthmus: 0 Bilateral neck scanned, no evidence of lymphadenopathy. IMPRESSION: Marginal decrease in size of bilateral TR 4 subcentimeter nodules. No new or enlarging thyroid nodule identified. Highest TI-RADS level nodule reported: ACR TI-RADS LEVEL: TI-RADS 4 - : Follow if > 1 cm, FNA if > 1.5 cm TI-RADS assessment score and recommendation for follow-up based on appropriate scoring and treatment protocols. TR1 Benign No FNA TR2 Not suspicious No FNA TR3: If nodule size is ? 2.5 cm, FNA is recommended. If nodule size is ? 1.5 cm, follow-up imaging at 1, 3, and 5 years is recommended. TR4: If nodule size is ? 1.5 cm, FNA is recommended. If nodule size is ? 1.0 cm, follow-up imaging at 1, 2, 3, and 5 years is recommended. TR5: If nodule size is ? 1.0 cm, FNA is recommended. If nodule size is ? 0.5 cm, annual follow-up for up to 5 years is recommended. TR 1 thyroid nodules have a 0.3 % risk of malignancy. TR 2 thyroid nodules have a 1.5 % risk of malignancy. TR 3 thyroid nodules have a 4.8 % risk of malignancy. TR 4 thyroid nodules have a 9.1 % risk of malignancy. TR 5 thyroid nodules have a 35 % risk of malignancy. [facility], , 03/10/2025 3:51 PM
== END | disposition home or self-care (01) ==
LOC: RADUSWWP 15:05
PROVIDERS: ATTEND Family Medicine
DX: E04.2 Nontoxic multinodular goiter (principal)
CPT/HCPCS: 76536